=== PATIENT | male | born 1980 | race Caucasian/White ===

== ENCOUNTER 2021-08-28 10:34 | Day surgery (SDC) | payer OTHER, SELFPAY ==
--- NOTE | 2021-08-28 | PATH_ITS ---
[facility] Accession Number: [id number] . 01 Material submitted: . PART A: stomach - BIOPSY ANTRUM PART B: esophagus - BIOPSY MID ESOPHAGUS . 02 Diagnosis: A. Biopsy Antrum: Portions of gastric antral and body-type mucosa with mild chronic inflammation. Negative for Helicobacter organisms by immunohistochemistry. Negative for intestinal metaplasia. Negative for dysplasia or malignancy. . B. Biopsy Mid Esophagus: Portions of squamous mucosa with very patchy, mild chronic inflammation, non-specific. Intraepithelial eosinophils are not increased. Negative for dysplasia and malignancy. Negative for fungal organisms by PAS stain. MRV 08/31/2021 1610 Local . 02 Electronically signed: . Thea Neumann MD, Pathologist NPI- [id number] . 01 Gross description: . A. Received in formalin, labeled antrum consists of two brady-pink fragments of soft tissue measuring 0.3 x 0.2 x 0.2 cm in aggregate. The specimen is entirely submitted in cassette A1. B. Received in formalin, labeled mid esophagus consists of three brady-white fragments of soft tissue measuring 0.4 x 0.3 x 0.2 cm in aggregate. The specimen is entirely submitted in cassette B. ([id number]) /MRV 08/29/2021 1231 Local . 02 Microscopic: . A. An immunohistochemical stain was performed to evaluate for Helicobacter organisms and is negative. The control stain showed appropriate reactivity. . B. A PAS stain is performed to evaluate for fungal organisms and is negative. The control stain showed appropriate reactivity. . . * This test was developed and its performance characteristics determined by [employer]. It has not been cleared or approved by the [place]. Food and Drug Administration. The FDA has determined that such clearance or approval is not necessary. This test is used for clinical purposes. It should not be regarded as investigational or for research. . 02 Pathologist provided ICD-10: K62.5, R13.10 . 02 CPT . 417872, 083506, [id number], [id number] Performed at: 01 [facility] [address] [id number] MD Margarito Prabhakar MD Phone: [phone] Performed at: [address] [id number] MD Georgette Valles MD Phone: [phone]
[2021-08-28 10:58] VITALS: BP 160/90; PULSE 56; RESP 16; TEMP 36.3; O2SAT 98; BMI 31.1
[2021-08-28] MEDS: SODIUM CHLORIDE 0.9% 1,000 ML 84 ML IV (11:03)
[2021-08-28 11:37] LABS: COVID19 -Nasal RAPID Negative (Negative)
--- NOTE | 2021-08-28 13:09 | PM.HP.1 ---
History of Present Illness History of Present Illness Date Patient Seen: 08/28/21 Time Patient Seen: 13:09 Chief complaint: SDC Narrative: Dysphagia rectal bleeding Patient History Medical History Hypertension Surgical History H/O vasectomy Family & Social History Social History: household members spouse Tobacco & Substance use: Smoking Status Never smoker alcohol intake frequency a few times a month Substance Use Type does not use Meds Home Medications and Allergies Home Medications Medication Instructions Recorded Confirmed Type hydrochlorothiazide 25 mg tablet 25 mg PO DAILY 08/28/21 08/28/21 History telmisartan 20 mg tablet 20 mg PO DAILY 08/28/21 08/28/21 History Allergies Allergy/AdvReac Type Severity Reaction Status Date / Time No Known Drug Allergies Allergy Verified 08/28/21 10:56 Review of Systems Review of Systems ROS: Yes All systems reviewed with the patient and are negative except as otherwise documented Exam Vital Signs (past 8 hours): - 08/28/21 10:58 Temperature 97.3 F L Pulse Rate 56 L Respiratory Rate 16 Blood Pressure 160/90 H Pulse Oximetry 98 Oxygen Delivery Method Room Air Const General: cooperative and comfortable Orientation: alert HENMT Head: normocephalic Ears: external ears normal Nose: external nose normal Face and sinus: normal facial exam Eyes General: appearance normal, both eyes and all related structures Neck Neck: normal visual inspection Chest Chest: normal inspection of the chest Resp Effort & Inspection: normal respiratory effort Cardio Rate: regular rate GI Inspection: normal to inspection Skin General: no rashes or lesions noted and No jaundice Neuro General: patient alert and moves all extremities Cognition: normal cognition Speech: speech normal Extrem General: normal to inspection Psych Appearance: grossly normal Objective Labs Labs: Laboratory Results - last 24 hr 08/28/21 10:50 SARS-CoV-2 (PCR) Negative Assessment & Plan Assessment & Plan narrative: Dysphagia rectal bleeding EGD and colonoscopy are planned for today. Time Spent With Patient Critical Care time: I spent a total of [] minutes of critical care time on this patient's care today; this time is exclusive of procedural time.
--- NOTE | 2021-08-28 13:11 | PM.PREOP ---
Pre-operative Note COVID-19 COVID-19 status: Negative Result date/Date tested (Pos, Neg/Pending): 08/28/21 Interval Note History & Physical reviewed/Exam performed by Physician: Yes Changes to H&P: No ASA Class (for procedural sedation): II
--- NOTE | 2021-08-28 13:11 | PM.OP.EC ---
Operative Date/Time/Diagnoses Date of procedure: 08/28/21 Time of procedure: 13:11 Pre-op diagnosis: Dysphagia rectal bleeding Post-op diagnosis: same Procedure & Clinicians Study performed: EGD with biopsies and a colonoscopy Same procedure as scheduled: Yes Indications: Dysphagia rectal bleeding Surgeon: Alirio العلي Procedure Notes SCOAP/Timeout: Done Procedure in detail: After the risks and benefits were explained, written and verbal informed consent was obtained. The patient was brought into the procedure room and placed into the left lateral decubitus position. Please see nurse wine cellar stock clerk notes for sedation details. The scope was introduced into the mouth through the bite block and advanced under direct visualization to the 2nd portion of the duodenum. The scope was slowly withdrawn carefully examining the mucosa for any defects or lesions. Retroflexed views were accomplished in the stomach. The stomach was decompressed, the scope was then removed from the patient who tolerated the procedure well. The patient was then turned around a digital rectal examination accomplished grade 3 and grade 4 nonbleeding nonthrombosed hemorrhoids were noticed. The scope was introduced into the rectum and advanced to the cecum as identified by the appendiceal orifice and ileocecal valve. The scope was slowly withdrawn to carefully examine the mucosa for any defects or lesions. Multiple direct views were made through the dentate line for exclusion of pathology the colon was decompressed and scope removed from the patient who tolerated the procedure well. Adult colonoscope Bowel prep adequate Scope withdrawal time: 6 minutes Sedation minutes: 11 Complications: none Impression: 1. Duodenum: This was normal from the bulb through to the 2nd portion. 2. Stomach: No ulcers no mass lesions no outlet obstruction. Mild gastropathy was noted and therefore biopsies were taken from the antrum for exclusion of H pylori. Retroflexed views of the LES were otherwise unremarkable. 3. Esophagus: The squamocolumnar junction correlated with the top of the gastric folds. GEJ was at about 39 cm from the incisors. No acute erosive changes no strictures no mass lesions. The main body of the esophagus had subtle circumferential tight folds consistent with possible eosinophilic infiltration. Random mid esophageal biopsies were therefore required. 4. Colon: No significant polyps mass lesions or inflammatory features identified throughout. Endoscopic diagnosis 1. Possible eosinophilic esophagitis 2. Gastropathy 3. Grade 3 and grade 4 nonbleeding nonthrombosed hemorrhoids Post-procedure Plan for aftercare: 1. Await histopathology. 2. If eosinophilic esophagitis is identified, a 6 week course of swallowed fluticasone therapy will be offered. 3. Follow up surgical clinic in regards definitive hemorrhoidal intervention. 4. Repeat colonoscopy 10 years time sooner should symptoms warrant an earlier exam. Disposition: PACU
[2021-08-28 13:14] VITALS: BP 145/88; PULSE 64; RESP 14; TEMP 36.8; O2SAT 99
[2021-08-28 13:20] VITALS: BP 134/87; PULSE 70; RESP 16; O2SAT 100
[2021-08-28 13:25] VITALS: BP 140/90; PULSE 72; RESP 16; O2SAT 99
== END 2021-08-28 13:36 | disposition home or self-care (01) ==
LOC: ENDO 10:39
PROVIDERS: Referring Provider Internal Medicine Gastroenterology; Visit Provider Internal Medicine Gastroenterology
PROC: 0DJ08ZZ Inspection of Upper Intestinal Tract, Via Natural or Artificial Opening Endoscopic (ICD-10-PCS; CPT 43235; principal; 2021-08-28 12:00)
PROC: 0DJD8ZZ Inspection of Lower Intestinal Tract, Via Natural or Artificial Opening Endoscopic (ICD-10-PCS; CPT 45378; 2021-08-28 12:00)
DX: K62.5 Hemorrhage of anus and rectum (principal); R13.10 Dysphagia, unspecified; I10 Essential (primary) hypertension; Z20.822 Contact with and (suspected) exposure to COVID-19; K31.9 Disease of stomach and duodenum, unspecified; K64.2 Third degree hemorrhoids; K64.3 Fourth degree hemorrhoids; K29.50 Unspecified chronic gastritis without bleeding; K20.90 Esophagitis, unspecified without bleeding
CPT/HCPCS: 43239; 45378; 36415; 87635; J2704